=== PATIENT | female | born 1990 | race Caucasian/White ===

== ENCOUNTER 2017-10-30 12:56 | Outpatient (REF) | payer MEDICAID, SELFPAY ==
[2017-10-31 13:44] LABS: Chlamydia Result Negative; GC Result Negative; Specimen Description CERVIX
== END 2017-10-30 13:16 ==
LOC: LBN 12:56
PROVIDERS: PCP Specialist/Technologist Athletic Trainer; Visit Provider Nurse Practitioner Women's Health
DX: Z11.3 Encounter for screening for infections with a predominantly sexual mode of transmission (principal)
CPT/HCPCS: 87491; 87591

== ENCOUNTER 2018-01-22 14:31 | Outpatient (REF) | payer MEDICAID, SELFPAY ==
[2018-01-22 22:00] LABS: Anion Gap 8.2 mmol/L (3-11); BUN 11 mg/dL (7-18); CO2 27.8 mmol/L (21.0-32.0); CREATININE 0.64 mg/dL (0.55-1.02); Calcium 9.1 mg/dL (8.5-10.1); Chloride 104 mmol/L (98-107); Cholesterol 130 mg/dL (50-200); Glucose 96 mg/dL (70-100); HDL Cholesterol 46 mg/dL (40-60); LDL CHOLESTEROL 75 mg/dL (<100); Sodium 140 mmol/L (136-145); Triglyceride 51 mg/dL (30-150)
[2018-01-22 22:23] LABS: Absolute Basophil Count 0.03 k/cumm (0.0-0.2); Absolute Eosinophil Count 0.17 k/cumm (0.0-0.7); Absolute Lymphocyte Count 2.92 k/cumm (1.2-3.4); Absolute Monocyte Count 0.48 k/cumm (0.11-0.7); Absolute Neutrophil Count 2.54 k/cumm (1.2-6.7); Basophils % 0.5; Eosinophils % 2.8; HCT 41.7 % (36.0-46.0); HGB 13.8 g/dL (12.0-15.5); Lymphocytes % 47.6; Mean Corp. HGB Concentration 33.1 g/dL (32.0-36.0); Mean Corpuscular Hemoglobin 29.8 pg (27.0-33.0); Mean Corpuscular Volume 90.1 fL (80-95); Mean Platelet Volume 11.7 fL (8.0-11.0); Monocytes % 7.8; Neutrophils % 41.3; Platelet Count 203 x1000/uL (130-400); RBC 4.63 m/cumm (4.00-5.20); White Blood Cell Count 6.14 k/cumm (4.4-10.8)
== END 2018-01-22 14:51 ==
LOC: NCHCN 14:31
PROVIDERS: PCP Specialist/Technologist Athletic Trainer; Visit Provider Specialist/Technologist Athletic Trainer
DX: Z72.0 Tobacco use (principal); Z13.228 Encounter for screening for other metabolic disorders; R59.9 Enlarged lymph nodes, unspecified; Z13.220 Encounter for screening for lipoid disorders
CPT/HCPCS: 80048; 80061; 83721; 85025

== ENCOUNTER 2018-01-29 01:16 | Outpatient (CLI) | payer MEDICAID, SELFPAY ==
--- NOTE | 2018-01-29 14:53 | DI.RAD_ITS ---
SYMPTOMS/DIAGNOSIS: ENLARGED LYMPH NODES, R59.9 PA AND LATERAL CHEST: Pulmonary hyperinflation is demonstrated. There is no infiltrate, mass or pleural effusion. The cardiovascular structures are intact. SUMMARY: No evidence of acute cardiopulmonary disease.
== END 2018-01-29 01:36 ==
PROVIDERS: PCP Specialist/Technologist Athletic Trainer; Visit Provider Specialist/Technologist Athletic Trainer
DX: R59.0 Localized enlarged lymph nodes (principal)
CPT/HCPCS: 71046

== ENCOUNTER 2018-11-10 11:05 | Emergency (ER) | payer SELFPAY ==
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
[2018-11-10 11:13] VITALS: BP 111/51; PULSE 60; RESP 15; TEMP 37.1; O2SAT 100
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
[2018-11-10] MEDS: Acetaminophen 500 MG TAB 1000 MG PO (11:33)
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
[2018-11-10 13:06] VITALS: BP 104/39; PULSE 61; TEMP 37
[2018-11-10 13:14] VITALS: BP 102/68; PULSE 78; RESP 16; TEMP 36.7; O2SAT 99
== END 2018-11-10 13:14 | disposition home or self-care (01) ==
PROVIDERS: Emergency Provider Physician Assistant; PCP Specialist/Technologist Athletic Trainer
DX: R51 Headache (principal); S00.01XA Abrasion of scalp, initial encounter; S20.219A Contusion of unspecified front wall of thorax, initial encounter; V47.5XXA Car driver injured in collision with fixed or stationary object in traffic accident, initial encounter
CPT/HCPCS: 36415; 99284; 70450; 71046

== ENCOUNTER 2020-08-04 11:09 | Outpatient (REF) | payer MEDICAID, SELFPAY ==
[2020-08-04 19:56] LABS: HCT 39.2 % (36.0-46.0); MCH 30.9 pg (27.0-33.0); MCHC 33.2 % (32.0-36.0); MCV 93.1 fL (80-95); MPV 10.5 fL (8.0-11.0); Platelet Count 174 10^3/uL (130-400); RBC 4.21 10^6/uL (3.93-5.22); RDW 12.5 % (11.7-14.6); RDW-SD 42.9 fL
[2020-08-04 20:16] LABS: ALT 36 U/L (14-59); AST 21 U/L (15-37); Albumin 4.2 g/dL (3.4-5.0); Alkaline Phosphatase 40 U/L (46-116); Anion Gap 8.6 mmol/L (3-11); BUN 11 mg/dL (7-18); Bilirubin, Total 1.5 mg/dL (0.2-1.0); CO2 27.4 mmol/L (21.0-32.0); CREATININE 0.5 mg/dL (0.55-1.02); Calculated LDL 88 mg/dL (<100); Chloride 105 mmol/L (98-107); Cholesterol 156 mg/dL (<200); Glucose 75 mg/dL (74-106); HDL Cholesterol 62 mg/dL (40-60); Potassium 3.8 mmol/L (3.5-5.1); Sodium 141 mmol/L (136-145); Total Protein 6.9 g/dL (6.4-8.2); Triglyceride 31 mg/dL (<150)
[2020-08-07 08:53] LABS: TSH (W/Ref FT4) 2.42 uIU/mL (0.36-3.74)
[2020-08-07 18:51] LABS: Vitamin B12 619 pg/mL (211-911)
== END 2020-08-04 11:10 | disposition home or self-care (01) ==
LOC: NCHCN 11:09
PROVIDERS: PCP Specialist/Technologist Athletic Trainer; Visit Provider Nurse Practitioner Family
DX: Z00.00 Encounter for general adult medical examination without abnormal findings (principal); K59.09 Other constipation; R20.2 Paresthesia of skin
CPT/HCPCS: 80053; 80061; 85027; 82607; 84443

== ENCOUNTER 2021-03-15 08:25 | Outpatient (REF) | payer MEDICAID, SELFPAY ==
--- NOTE | 2021-03-15 07:45 | PAPFT_PTH ---
PATIENT: Namita Rojas LOC: [facility]#:[id number] AGE/SX: 30/F ROOM: RE03/15/[address]: Alesia Vyas : 1990 BED: DIS: 03/15/2021 SPEC #: [id number] RECD: 03/15/21 12:46 STATUS: MARICEL REBatsheva #: [id number] RACHANA: 03/15/21 07:[address]: Alesia Vyas DEPT: [facility] Cytology RECD BY: Ely Muse ENTERED: 03/15/21 12:47 SP TYPE: PAPFT OTHR DR: Jim Lyle Tissues: 1 - CX/ENDOCX FOR PAP SMEARS Procedures: PAP THIN PREP/UVM Screening HPV DNA PROBE Comments: [id number]
== END 2021-03-15 08:26 | disposition home or self-care (01) ==
LOC: NCHCN 08:25
PROVIDERS: PCP Specialist/Technologist Athletic Trainer; Visit Provider Nurse Practitioner Family
DX: Z12.4 Encounter for screening for malignant neoplasm of cervix (principal); Z11.51 Encounter for screening for human papillomavirus (HPV); N89.8 Other specified noninflammatory disorders of vagina
CPT/HCPCS: 88142; 87480; 87510; 87624; 87660

== ENCOUNTER 2021-10-08 17:44 | Outpatient (REF) | payer MEDICAID, SELFPAY ==
[2021-10-10 15:11] LABS: Chlamydia Result Negative (Negative); GC Result Negative (Negative)
== END 2021-10-08 17:45 | disposition home or self-care (01) ==
LOC: NCHCN 17:44
PROVIDERS: PCP Specialist/Technologist Athletic Trainer; Visit Provider Nurse Practitioner Family
DX: N89.8 Other specified noninflammatory disorders of vagina (principal); Z11.3 Encounter for screening for infections with a predominantly sexual mode of transmission
CPT/HCPCS: 87491; 87591; 87480; 87510; 87660